=== PATIENT | female | born 1950 ===

== ENCOUNTER 2017-06-07 09:18 | Emergency (ER) | payer MEDICARE, SELFPAY ==
[2017-06-07] VITALS (7 sets, daily range): BP systolic 114–134; BP diastolic 65–73; PULSE 54–63; RESP 14–24; TEMP 36.7; O2SAT 20–100; BMI 31.7
--- NOTE | 2017-06-07 09:43 | ED.RN ---
SPOKE WITH DR MENARD OFFICE, THEY ARE GOING TO FAX PATIENT INFORMATION ALONG WITH INFORMATION ABOUT CHEMO. [facility] CONTACTED TO STOP AND DISCONNECT CHEMO PUMP.
--- NOTE | 2017-06-07 09:51 | ED.RN ---
THIS NURSE SPOKE WITH DR MENARD ON TELEPHONE - TELEPHONE ORDER TO STOP CHEMO RECEIVED. [facility] CONTACTED WITH THE SAME INFORMATION TO COME TURN OFF THE PUMP AND STOP THE CHEMO
--- NOTE | 2017-06-07 09:52 | EKG12_ITS ---
Test Reason : CP Blood Pressure : / mmHG Vent. Rate : 067 BPM Atrial Rate : 067 BPM P-R Int : 152 ms QRS Dur : 106 ms QT Int : 390 ms P-R-T Axes : 029 -33 083 degrees QTc Int : 412 ms Normal sinus rhythm Left axis deviation Nonspecific T wave abnormality Abnormal ECG Confirmed by CHRIS MORRIS, JEREMY ([id number]), film editor RYANN DEMARCO ([id number]) on 06/10/2017 11:15:31 AM Referred By: MANUEL Confirmed By:JEREMY PEREZ MD
--- NOTE | 2017-06-07 10:35 | RAD_ITS ---
STUDY: X-RAY - ACUTE ABDOMINAL SERIES REASON FOR EXAM: Female, 66 years old. Nausea and vomiting. Chest pain. The patient has gastroesophageal cancer. TECHNIQUE: Single view of the chest. Supine, and erect view(s) of the abdomen were obtained. COMPARISON: None. FINDINGS: A right-sided portacatheter is seen. The tip is at the junction of the superior vena cava and right atrium. EKG electrodes are seen. The lungs are clear and expanded. Normal size heart. Normal mediastinum and jam. Normal visualized pulmonary arteries. There is atherosclerotic calcification of the aortic arch with tortuosity. There is a non-specific bowel gas pattern. Surgical clips are seen in the gastroesophageal junction. A left-sided double-J stent catheter is seen in good position. A suprapubic catheter is seen within the bladder. The patient is status post cholecystectomy. The patient is status post fusion at the L5-S1 level. RAD/Acute Abdomen Inc Chest IMPRESSION: No acute abnormality is seen. Electronically Signed: Spike Kilgore MD at 11:12 EDT Tel [phone], Service support ,
[2017-06-07] MEDS: Ondansetron 4 MG/2 ML Vial 8 MG IV (11:06)
[2017-06-07 11:10] LABS: Absolute Neutrophil Count 7.1 X10^3/uL (2.0-7.7); Differential Indicated SCAN CRITERIA MET; Eosinophil# 0.07 X10^3/uL; Eosinophils% 0.8 % (0-5); Hematocrit 27.7 % (37-47); Hemoglobin 8.9 g/dl (12.0-15.0); Mean Corp Hgb Conc 32.1 g/gl (32-36); Mean Corpuscular Hgb 28.3 pg (27.0-32.0); Mean Corpuscular Volume 87.9 fL (81-99); Mean Platelet Vol. 9.2 fl (6.2-12.0); Monocyte# 0.83 X10^3/uL; Monocyte% 9.7 % (0-10); Neutrophil # 7.05 X10^3/uL (2.7-7.7); Neutrophil % 82.4 % (47-70); POSITIVE COUNT NO; POSITIVE DIFFERENTIAL YES; POSITIVE MORPHOLOGY NO; Platelet Count 219 K/mm3 (150-450); RBC Distribution Width CV 15.1 % (11.6-14.6); RBC Distribution Width SD 49.2 fl (35.1-43.9); Red Blood Count 3.15 M/mm3 (4.2-5.4); White Blood Count 8.6 K/mm3 (4.4-11.0)
[2017-06-07 11:21] LABS: Anion Gap 7 (5-15); BUN 46 mg/dL (7-18); BUN/Creat Ratio 35.7 RATIO (10-20); Calcium,Total 8.3 mg/dL (8.5-10.1); Chloride 100 mmol/L (98-107); Creatinine, Serum 1.29 mg/dL (0.55-1.02); EST Glomerular Filtration Rate 44 mL/min (>60); Est Glom Filt Rate - Afr Amer 53 mL/min (>60); Estimated Creatinine Clearance 32.37 ml/min; Glucose 124 mg/dL (74-106); Potassium 4.3 mmol/L (3.5-5.1); Sodium Level 137 mmol/L (136-145)
[2017-06-07] MEDS: 0.9% Normal Saline 1,000 ML 999 ML IV (12:08)
--- NOTE | 2017-06-07 14:01 | ED.DCSUM_ITS ---
- ER Visit Summary Date of Service: 06/07/17 Chief Complaint: Chest pain History of Present Illness: The patient is a 66 F who states that she is currently being treated for esophageal and stomach cancer. She sees Dr. Su. The patient started 5-FU yesterday. At around 0100 hrs. last night she developed a lower chest pressure on both sides. It is nonradiating. She states that she developed some nausea and later vomited and this relieved her symptoms. She states that she was able to go back to bed and was woken from her sleep with the same symptoms. Patient had spoken with on-call nursing several times eventually came to the emergency department this morning. She states that she was told prior to her cancer treatment at it appeared that she had had a heart attack in the past. She states she never had an echocardiogram or catheterization however. Patient does note that she has had some constipation which is not abnormal for her. She is essentially n.p.o. and uses tube feeds. Physical Examination: Afebrile vital signs are stable Gen: Well-nourished well-developed Head: Normocephalic atraumatic Eyes: Perrl EOMI ENT: TMs clear no rhinorrhea moist mucous membranes Neck: Supple no lymphadenopathy no JVD nontender CVS: Regular rate rhythm no murmurs normal S1-S2 Respiratory: No distress clear to auscultation bilaterally chest nontender port right chest without complication Abdomen: Soft nontender nondistended normal bowel sounds no masses in incisions and feeding tube in place Back: Nontender Extremity: Nontender no edema Skin: Normal color no rash Neuro: alert orientated ?3 CN II-XII intact normal strength sensation reflexes gait cerebellar Psych: Normal affect normal mood Test Results: EKG sinus at a rate of 67. Chest x-ray included with abdominal series shows no obvious obstruction or obvious exposure for pain. Basic labs showed a BUN of 46 and creatinine 1.29. Delta troponins were negative. Emergency Department Course and Treatment: Patient received IV fluids. She also received a dose of nitroglycerin. After her observation here in the department she remains pain-free. I spoke with Dr. Su our plan will be to go ahead and stop the 5-FU which has been done. He will follow-up with her in the office. KEELY score of 1. Impression: 1. Chest pain This note was generated with [facility] dictation software. It may contain incorrect words, spelling, and punctuation that were not noted in review of the chart prior to signing ED Disposition - Plan for ED Patient: Disposition: Home or Assisted Living Chief Complaint: Chest Pain Instructions: ED Chest Pain Atypical Unkn Cause Referrals: Ady Norman MD [Primary Care Provider] - Hector Su DO [STAFF PHYSICIAN] - As soon as possible
== END 2017-06-07 14:17 | disposition home or self-care (01) ==
PROVIDERS: Emergency Provider Emergency Medicine; Family Provider Family Medicine; PCP Family Medicine
DX: R07.9 Chest pain, unspecified (principal); C16.9 Malignant neoplasm of stomach, unspecified; C15.9 Malignant neoplasm of esophagus, unspecified; K59.00 Constipation, unspecified; E66.9 Obesity, unspecified; I25.2 Old myocardial infarction
CPT/HCPCS: 74022; 80048; 84484; 85025; 93005; 96361; 96374; 99283; J7030; A4216; J2405

== ENCOUNTER 2017-08-06 00:35 | Emergency (ER) | payer SELFPAY ==
--- NOTE | 2017-08-06 00:10 | CT_ITS ---
STUDY: CT ABDOMEN AND PELVIS WITHOUT CONTRAST REASON FOR EXAM: Female, 67 years old. Abdominal pain. Erythema surrounding the gastrostomy tube insertion site. RADIATION DOSAGE (If Supplied By Facility): CTDIvol = ( 12.15 ) mGy, DLP = ( 597.94 ) mGycm TECHNIQUE: Transaxial images were obtained from the dome of the diaphragm to the symphysis pubis with enteric contrast injected via the jejunostomy tube, and without intravenous contrast. Sagittal and coronal images were reconstructed. Individualized dose optimization techniques were used for this CT. COMPARISON: Prior comparison studies are not available for review at this time. FINDINGS: There is left basilar dependent atelectasis. There may be some patchy airspace disease in the left lower lobe as well. There are small pleural effusions and/or mild pleural thickening The visualized portions of the heart are within normal limits. Normal liver. There are surgical clips in the gallbladder fossa consistent with a prior cholecystectomy. There is mild splenomegaly. There is diffuse atrophy of the pancreas. There is a left adrenal nodule measuring up to 2.6 cm in size. There may be small right adrenal nodules measuring up to 11.9 mm. Normal right kidney. Left kidney has a double pigtail ureteral stent. There is mild fullness within the left renal pelvis. Appears to be abnormal thickening of the maher of the distal esophagus maher measuring approximately 12 mm. Surgical sutures are visible in the stomach suggesting patient has had a gastric bypass surgery. A percutaneously placed jejunostomy tube is visible within the left-sided small bowel. There is no evidence for dilated bowel or ascites. The small bowel has a grossly normal appearance otherwise. Normal colon. The appendix is visualized and appears normal. Normal abdominal aorta. Normal inferior vena cava. Normal retroperitoneum. Urinary bladder wall appears mildly thickened measuring approximately 7 mm. There is absence of the uterus consistent with a prior hysterectomy. There is some edema within the abdominal wall surrounding the jejunostomy tube consistent with acute inflammation. There is no evidence to suggest abscess. The patient has had discectomy at L5-S1 with surgical fusion with interpedicular screws. Patient appears of had laminectomies of L5. The bones appear osteopenic. There is an exaggerated lumbar lordosis. CT/Abdomen/Pel W ORAL Cont Only IMPRESSION: 1. Soft tissue edema within the abdominal wall surrounding jejunostomy tube. 2. Status post gastric bypass surgery. 3. Abnormal thickening of maher of the distal esophagus. 4. Small bilateral pleural effusions and possible left basilar airspace disease. Electronically Signed: Leslie Davis MD at 1:38 EDT , Service support ,
--- NOTE | 2017-08-06 00:35 | DT_ITS ---
This patient was seen during an EMR downtime August 01, 2017 - August 08, 2017. This patient may have a combination of paper and electronic documentation or all paper documentation. All documentation is viewable within the e-chart portion of [employer] for each patient visit.
== END 2017-08-06 02:42 | disposition home or self-care (01) ==
LOC: ED 08-07 11:39
PROVIDERS: Emergency Provider Emergency Medicine; Family Provider Family Medicine Hospice and Palliative Medicine; PCP Family Medicine Hospice and Palliative Medicine
DX: L03.311 Cellulitis of abdominal wall (principal); R10.9 Unspecified abdominal pain; C15.9 Malignant neoplasm of esophagus, unspecified; C78.6 Secondary malignant neoplasm of retroperitoneum and peritoneum; Z93.4 Other artificial openings of gastrointestinal tract status; Z87.891 Personal history of nicotine dependence; Z79.899 Other long term (current) drug therapy
CPT/HCPCS: 74176; 99282